=== PATIENT | female | born 1940 | race Caucasian/White ===

== ENCOUNTER 2019-04-13 18:58 | Emergency (ER) | payer MEDICARE, BC ==
[~2019-04-13] VITALS: Ht 152.4 cm; Wt 95.5 kg
[2019-04-13 19:10] VITALS: BP 192/97
[2019-04-13] MEDS ORDERED: ATENOLOL/CHLORT1 TA1 PO (19:29)
[2019-04-13] MEDS ORDERED: OCUVITE TABLET1 TAB PO (19:29)
[2019-04-13] MEDS ORDERED: ASPIRIN E.C. 8181 MG PO (19:29)
[2019-04-13] MEDS ORDERED: CEPHALEXIN250 MG PO (20:11)
== END 2019-04-13 20:15 | disposition home or self-care (01) ==
LOC: ED 18:58
DX: S61.012A Laceration without foreign body of left thumb without damage to nail, initial encounter (principal); I10 Essential (primary) hypertension; Z88.0 Allergy status to penicillin; Z79.82 Long term (current) use of aspirin; W26.9XXA Contact with unspecified sharp object(s), initial encounter; Y92.009 Unspecified place in unspecified non-institutional (private) residence as the place of occurrence of the external cause

== ENCOUNTER → 2022-02-13 | Day surgery (SDC) | payer MEDICARE, BC ==
[~2022-02-13] MED LIST: ASPIRIN E.C. 8181 MG PO; ATENOLOL/CHLORT1 TA1 PO; CEPHALEXIN250 MG PO; OCUVITE TABLET1 TAB PO
== END | disposition home or self-care (01) ==
LOC: MSO
DX: Z12.11 Encounter for screening for malignant neoplasm of colon (principal); K44.9 Diaphragmatic hernia without obstruction or gangrene; K22.5 Diverticulum of esophagus, acquired; K57.30 Diverticulosis of large intestine without perforation or abscess without bleeding; R13.10 Dysphagia, unspecified; Z85.3 Personal history of malignant neoplasm of breast
CPT/HCPCS: 00813; J2704; J7120

== ENCOUNTER 2022-03-31 08:32 | Emergency (ER) | payer MEDICARE, BC ==
[~2022-03-31] VITALS: Ht 152.4 cm; Wt 87.7 kg
[2022-03-31] MEDS ORDERED: VERZENIO150 MG PO ×2 (08:43)
[2022-03-31] MEDS ORDERED: TYLENOL325 M1 PO (08:46)
[2022-03-31] MEDS ORDERED: PANTOPRAZOLE SO40 MG PO (08:47)
[2022-03-31] MEDS ORDERED: TRIAMCINOLONE A15 G3 TP (08:48)
[2022-03-31] MEDS ORDERED: CEFDINIR300 MG PO (08:49)
[2022-03-31] MEDS ORDERED: ANASTROZOLE1 M1 PO (08:49)
[2022-03-31 08:50] VITALS: BP 124/59
[2022-03-31 09:24] LABS: BASO # 0.04 K/mm3 (0.02-0.10); EOS # 0.04 K/mm3 (0.04-0.40); EOS % 0.8 % (1.0-5.0); HEMATOCRIT 34.2 % (37.0-47.0); HEMOGLOBIN 11.2 g/dL (12.5-16.0); LYMPH# 1.12 K/mm3 (1.50-4.00); MEAN CELL VOLUME 96 fl (78-100); MEAN CORPUSCULAR HEMOGLOBIN 32 pg (27-31); MEAN CORPUSCULAR HGB CONC 33 g/dL (33-37); MEAN PLATELET VOLUME 10.9 fl (7.4-10.4); MONO # 0.31 K/mm3 (0.20-0.80); NEU # 3.51 K/mm3 (1.40-6.50); PLATELET COUNT 129 K/mm3 (130-400); RED BLOOD COUNT 3.56 M/mm3 (4.10-5.30); RED CELL DISTRIBUTION WIDTH 11.7 % (11.5-14.5)
[2022-03-31 09:30] LABS: ALBUMIN 3.4 g/dL (3.4-4.8); POTASSIUM 3.3 mmol/L (3.5-5.1)
[2022-03-31 09:32] LABS: CALCIUM 8.8 mg/dL (8.3-10.5)
[2022-03-31 09:33] LABS: TOTAL PROTEIN 6.1 g/dL (6.2-8.1)
[2022-03-31 09:35] LABS: TOTAL BILIRUBIN 0.5 mg/dL (0.2-1.2)
[2022-03-31 10:26] LABS: URINE APPEARANCE CLEAR; URINE BILIRUBIN NEGATIVE (NEGATIVE); URINE BLOOD 50 ery/uL (NEGATIVE); URINE COLOR YELLOW; URINE GLUCOSE NEGATIVE (NEGATIVE); URINE KETONE NEGATIVE (NEGATIVE); URINE LEUKOCYTE ESTERASE NEGATIVE (NEGATIVE); URINE NITRATE NEGATIVE (NEGATIVE); URINE PROTEIN(semi-quant) NEGATIVE (NEGATIVE); URINE UROBILINOGEN NORMAL (NORMAL)
[2022-03-31 10:27] LABS: URINE WBC 0-1 /hpf (0-3)
[2022-03-31 15:43] LABS: POTASSIUM 4.2 mmol/L (3.5-5.1)
[2022-03-31 15:45] LABS: CALCIUM 8.8 mg/dL (8.3-10.5)
== END 2022-03-31 17:55 | disposition other institution (70) ==
LOC: ED 08:32
PROVIDERS: Nurse Practitioner
DX: I63.9 Cerebral infarction, unspecified (principal); E83.42 Hypomagnesemia; E87.6 Hypokalemia; C50.912 Malignant neoplasm of unspecified site of left female breast; Z79.02 Long term (current) use of antithrombotics/antiplatelets
CPT/HCPCS: J7030; Q9967

== ENCOUNTER 2022-03-31 15:43 | Inpatient (IN) | payer MEDICARE, BC ==
[~2022-03-31] VITALS: Ht 152.4 cm; Wt 87.7 kg
[~2022-03-31 15:43] MED LIST changes: +ANASTROZOLE1 M1 PO; +CEFDINIR300 MG PO; +PANTOPRAZOLE SO40 MG PO; +TRIAMCINOLONE A15 G3 TP; +TYLENOL325 M1 PO; +VERZENIO150 MG PO
[2022-03-31 21:53] VITALS: BP 164/80
[2022-04-01 02:16] VITALS: BP 156/80
[2022-04-01 05:56] VITALS: BP 154/80
[2022-04-01 09:01] LABS: POTASSIUM 3.7 mmol/L (3.5-5.1)
[2022-04-01 09:02] LABS: ALBUMIN 3.2 g/dL (3.4-4.8)
[2022-04-01 09:03] LABS: CALCIUM 8.8 mg/dL (8.3-10.5)
[2022-04-01 09:06] LABS: TOTAL BILIRUBIN 0.6 mg/dL (0.2-1.2)
[2022-04-01 09:10] LABS: MAGNESIUM 1.77 mg/dL (1.60-2.60)
[2022-04-01 09:20] LABS: BASO # 0.04 K/mm3 (0.02-0.10); EOS # 0.04 K/mm3 (0.04-0.40); EOS % 0.9 % (1.0-5.0); HEMATOCRIT 33.1 % (37.0-47.0); LYMPH# 1.24 K/mm3 (1.50-4.00); MEAN CELL VOLUME 95 fl (78-100); MEAN CORPUSCULAR HEMOGLOBIN 32 pg (27-31); MEAN CORPUSCULAR HGB CONC 33 g/dL (33-37); MEAN PLATELET VOLUME 11.3 fl (7.4-10.4); NEU # 2.68 K/mm3 (1.40-6.50); PLATELET COUNT 142 K/mm3 (130-400); RED BLOOD COUNT 3.47 M/mm3 (4.10-5.30); RED CELL DISTRIBUTION WIDTH 11.7 % (11.5-14.5); WHITE BLOOD COUNT 4.4 K/mm3 (4.8-10.8)
[2022-04-01 10:34] VITALS: BP 114/64
[2022-04-01 13:49] VITALS: BP 97/59
[2022-04-01 18:18] VITALS: BP 117/57
[2022-04-01 21:35] VITALS: BP 138/74
[2022-04-02 05:49] VITALS: BP 153/76
[2022-04-02 10:50] VITALS: BP 137/78
[2022-04-02 14:07] VITALS: BP 146/74
[2022-04-02 18:03] VITALS: BP 126/68
[2022-04-02 21:47] VITALS: BP 124/70
[2022-04-03 02:00] VITALS: BP 147/79
[2022-04-03 06:01] VITALS: BP 174/73
[2022-04-03 09:20] VITALS: BP 146/70
[2022-04-03 14:35] VITALS: BP 119/68
[2022-04-03 16:42] VITALS: BP 146/69
[2022-04-04] MEDS ORDERED: CLOPIDOGREL PO (09:38)
[2022-04-04] MEDS ORDERED: LIPITOR 80MG80 MG PO (12:56)
== END 2022-04-03 16:18 | disposition swing bed (61) | DRG 66 ==
LOC: MED/SURG 15:43
PROVIDERS: ADMIT Nurse Practitioner
DX: I63.511 Cerebral infarction due to unspecified occlusion or stenosis of right middle cerebral artery (principal); I10 Essential (primary) hypertension; E87.6 Hypokalemia; Z66 Do not resuscitate; Z20.822 Contact with and (suspected) exposure to COVID-19; Z86.73 Personal history of transient ischemic attack (TIA), and cerebral infarction without residual deficits; Z85.3 Personal history of malignant neoplasm of breast; Z88.0 Allergy status to penicillin
CPT/HCPCS: J1650

== ENCOUNTER 2022-04-03 16:19 | Inpatient (IN) | payer MEDICARE, BC ==
[~2022-04-03] VITALS: Ht 152.4 cm; Wt 87.7 kg
[2022-04-03 16:40] VITALS: BP 146/69
[2022-04-04 05:59] VITALS: BP 161/75
[2022-04-04] MEDS ORDERED: CLOPIDOGREL PO (09:38)
[2022-04-04] MEDS ORDERED: LIPITOR 80MG80 MG PO (12:56)
== END 2022-04-04 13:50 | disposition home health service (06) | DRG 66 ==
LOC: MED/SURG 16:19
PROVIDERS: ADMIT Physician Assistant
DX: I63.511 Cerebral infarction due to unspecified occlusion or stenosis of right middle cerebral artery (principal); I10 Essential (primary) hypertension; R53.81 Other malaise; Z66 Do not resuscitate; Z88.0 Allergy status to penicillin
CPT/HCPCS: J1650

== ENCOUNTER → 2022-04-12 | Outpatient (CLI) | payer MEDICARE, BC ==
[~2022-04-12] VITALS: Ht 152.4 cm; Wt 87.7 kg
[~2022-04-12] MED LIST changes: +CLOPIDOGREL PO; +LIPITOR 80MG80 MG PO
[2022-04-12 11:15] VITALS: BP 98/65
[2022-04-12 11:30] VITALS: BP 100/62
[2022-04-12 11:45] VITALS: BP 99/72
[2022-04-12 12:00] VITALS: BP 94/74
[2022-04-12 12:15] VITALS: BP 96/64
== END ==
LOC: AMSURD 04-11 15:34
DX: U07.1 COVID-19 (principal)

== ENCOUNTER 2022-08-16 09:46 | Outpatient (RCR) | payer MEDICARE, BC | END 2022-09-13 | disposition home or self-care (01) | LOC: PT | DX: R68.89 Other general symptoms and signs (principal) ==

== ENCOUNTER → 2022-11-28 | Outpatient (CLI) | payer MEDICARE, BC | LOC: RAD 07:53 | DX: K82.8 Other specified diseases of gallbladder (principal) ==

== ENCOUNTER → 2022-12-07 | Outpatient (CLI) | payer MEDICARE, BC | LOC: AMSURD 09:48 | DX: I48.0 Paroxysmal atrial fibrillation (principal) ==